=== PATIENT | male | born 1980 | race Caucasian/White ===

== ENCOUNTER 2017-03-01 15:08 | Inpatient (IN) | payer BC ==
[2017-03-01] MEDS ORDERED: MORPHINE IV PRN (21:13)
[2017-03-01] MEDS ORDERED: DULCOLAX PR PRN (21:13)
[2017-03-01] MEDS ORDERED: ZOFRAN IV PRN (21:13)
[2017-03-01] MEDS ORDERED: AMBIEN PO PRN (21:13)
[2017-03-01] MEDS ORDERED: MILK OF MAGNESIA PO PRN (21:13)
[2017-03-01] MEDS ORDERED: PERCOCET 5/325 PO PRN (21:13)
--- NOTE | 2017-03-01 21:13 | History and Physical Report ---
History of Present Illness Date of examination: 03/01/17 Date of admission: 03/01/17 16:56 Chief complaint: CC Fever 4 days History of present illness: SLEETMUTE:36 y/o male sent from Dr Hernandez's office for Fever of 4 days duration.Some body aches.No cough.No Nausea vomiting. No Dysuria.No SOB. Past History Past Medical History: No medical history Past Surgical History: Other (L knee surgery) Social history: no significant social history, lives with family Family history: no significant family history Medications and Allergies Allergies Allergy/AdvReac Type Severity Reaction Status Date / Time No Known Allergies Allergy Verified 03/01/17 16:26 Home Medications Medication Instructions Recorded Confirmed Last Taken Type No Known Home Medications [No 03/01/17 03/01/17 Unknown History Reported Home Medications] Active Meds: Active Medications Influenza Virus Vaccine Quadrival (Fluarix Quad 0590-0382(36 Mos+) 0.5 ml IM .ONCE ONE Stop: 03/02/17 12:01 Pneumococcal Polyvalent Vaccine (Pneumovax 23) 0.5 ml IM .ONCE ONE Stop: 03/02/17 12:01 Review of Systems All systems: negative Constitutional: fever, chills, anorexia, fatigue, weakness, malaise Ears, nose, mouth and throat: no dysphagia, no hoarseness, no sore throat, no swelling in mouth, no swelling in throat, no odynophagia Cardiovascular: no chest pain, no orthopnea, no palpitations, no rapid/ irregular heart beat, no edema, no syncope, no lightheadedness, no shortness of breath Respiratory: no cough, no cough with sputum, no excessive sputum, no hemoptysis , no shortness of breath, no dyspnea on exertion Gastrointestinal: no abdominal pain, no nausea, no vomiting, no diarrhea, no constipation Genitourinary Male: no dysuria, no hematuria, no flank pain, no discharge, no urinary frequency, no urinary hesitancy Musculoskeletal: no neck stiffness, no neck pain, no shooting arm pain, no arm numbness/tingling, no low back pain Integumentary: no rash, no pruritis, no redness Neurological: no head injury, no transient paralysis, no paralysis, no weakness Psychiatric: no anxiety, no memory loss, no change in sleep habits, no sleep disturbances Endocrine: no cold intolerance, no heat intolerance, no polyphagia, no excessive thirst Hematologic/Lymphatic: no easy bruising, no easy bleeding Allergic/Immunologic: no urticaria, no allergic rhinitis, no wheezing Exam - Constitutional Vitals: Temp Pulse Resp BP Pulse Ox 97.5 F L 102 H 18 120/85 97 03/01/17 20:08 03/01/17 20:08 03/01/17 20:08 03/01/17 20:08 03/01/17 20:08 General appearance: Present: no acute distress, well-nourished - EENT Eyes: Present: PERRL ENT: hearing intact, clear oral mucosa - Neck Neck: Present: supple, normal ROM - Respiratory Respiratory effort: normal Respiratory: bilateral: CTA - Cardiovascular Heart rate: 80 Rhythm: regular Heart Sounds: Present: S1 & S2. Absent: rub, click - Extremities Extremities: no ischemia, pulses intact, pulses symmetrical, No edema Peripheral Pulses: within normal limits - Abdominal General gastrointestinal: Present: soft, non-tender, non-distended, normal bowel sounds Male genitourinary: Present: normal - Rectal Rectal Exam: deferred - Integumentary Integumentary: Present: clear, warm, dry - Musculoskeletal Musculoskeletal: gait normal, strength equal bilaterally - Psychiatric Psychiatric: appropriate mood/affect, intact judgment & insight - Neurologic Neurologic: CNII-XII intact, moves all extremities - Allied Health Allied health notes reviewed: nursing, case management Results - Labs CBC & Chem 7: 03/01/17 23:15 03/01/17 21:28 - Imaging and Cardiology Chest x-ray: report reviewed Assessment and Plan Advance Directives: Yes (Full code) VTE prophylaxis?: Chemical Plan of care discussed with patient/family: Yes - Patient Problems (1) SIRS (systemic inflammatory response syndrome) Current Visit: Yes Status: Acute Plan to address problem: Fever of 101/103 in PCP's office Some Leukocytosis Bp of 97/68 in pcp's office. RR 22 Treat for Sirs.Iv levaquin IV fluids and Tamiflu.Xray and strep screen negative in PCp's office.Was given 1 liter NS in the pcp's office (2) Viral syndrome Current Visit: Yes Status: Acute Plan to address problem: In favor of influenza.Started on Tamiflu (3) Hyperglycemia Current Visit: Yes Status: Acute Plan to address problem: Patient may have T2DM Check A1c and initiate on Oral Hypoglycemics (4) Malnutrition Current Visit: Yes Status: Chronic Plan to address problem: Sec to excess calories and Morbid obesity (5) DVT prophylaxis Current Visit: Yes Status: Acute Plan to address problem: on lovenox
[2017-03-01] MEDS: PEPCID PO SCH (21:49)
[2017-03-01] MEDS: D5NS 1,000 ML IV SCH (21:49)
[2017-03-01 22:05] LABS: Anion Gap 19 mmol/L; BUN/Creatinine Ratio 15; Blood Urea Nitrogen 20 mg/dL (9-20); Calcium 8.1 mg/dL (8.4-10.2); Carbon Dioxide 23 mmol/L (22-30); Chloride 93.1 mmol/L (98-107); Glucose 183 mg/dL (75-100); Potassium 3.7 mmol/L (3.6-5.0); Sodium 131 mmol/L (137-145)
[2017-03-01 23:42] LABS: Basophils % (Auto) 0.1 % (0.0-1.8); Hematocrit 40.4 % (35.5-45.6); Hemoglobin 13.5 gm/dl (11.8-15.2); Mean Corpuscular HGB Conc 33 % (32-34); Mean Corpuscular Hemoglobin 29 pg (28-32); Mean Corpuscular Volume 87 fl (84-94); Platelet Count 150 K/mm3 (140-440); Red Blood Count 4.66 M/mm3 (3.65-5.03); Red Cell Distribution Width 14.1 % (13.2-15.2); White Blood Count 11.2 K/mm3 (4.5-11.0)
[2017-03-02] MEDS: TAMIFLU PO SCH ×3 (00:18→22:21)
[2017-03-02] MEDS: TYLENOL PO PRN ×2 (00:18→18:41)
--- NOTE | 2017-03-02 09:19 | XRay Report ---
CHEST TWO VIEWS: 03/02/17 CLINICAL: Cough and fever. COMPARISON: None FINDINGS: Normal heart and pulmonary vasculature. The lungs are normally expanded and clear.The bones and soft tissues are normal. IMPRESSION: Normal chest.
[2017-03-02] MEDS: PEPCID PO SCH ×2 (11:13→22:17)
[2017-03-02] MEDS: LEVAQUIN 750MG/150ML 750 MG/150 ML BAG IV SCH (11:14)
[2017-03-02] MEDS: D5NS 1,000 ML IV SCH (11:20)
[2017-03-02] MEDS: NOVOLOG SUB-Q SCH ×4 (11:30→22:24)
--- NOTE | 2017-03-02 11:48 | Progress Note ---
Assessment and Plan Assessment and plan: Patient is a 36-year-old man with a history of morbid obesity who was a direct admit by Dr. Franklin for fevers. -Sepsis most likely due to viral illness, poa as evident RR 22, hr 106, I re- Ordered influenza which is negative, chest x-ray read as no acute findings: continue iv abx, follow up cultures -Viral syndrome: on tamiflu -Hyperglycemia, may be new onset DM: a1c pending, start ada, ssi -Morbid Obesity, bmi 54.8: lifestyle modification discussed -DVT prophylaxis: added sq heparin -Disposition: When he is afebrile for 24 hours and cultures back for discharge History Interval history: Patient was seen and examined. Follow-up on current diagnosis/fevers. Overnight uneventful. Patient denies any chest pain, shortness breath, nausea/ vomiting or severe headaches. Imaging, nursing note, chart, labs and old chart reviewed. Discussed with patient. Hospitalist Physical - Physical exam Narrative exam: GEN: WDWN, NAD, AWAKE, ALERT, ORIENTATED 3, BMI 55 HEENT: NCAT, EOMI, PERRL, OP Clear NECK: supple, no adenopathy, no thyromegaly, no JVD CVS/HEART: RRR, NORMAL S1S2, NO JVD, pulses present bilaterally CHEST/LUNGS: CTA B, Symmetrical chest expansion, good air entry bilaterally GI/Abdomen: soft, NTND, good bowel sounds, no guarding or rebound /Bladder: no suprapubic tenderness, no CVA or paraspinal tenderness EXT/Skin: no c/c/e, acanthosis nigricans around neck MSK: FROM x 4 Neuro: CN 2-12 grossly intact, no new focal deficits Psych: calm - Constitutional Vitals: Temp Pulse Resp BP Pulse Ox 97.4 F L 117 H 24 126/72 96 03/02/17 08:30 03/02/17 08:30 03/02/17 08:30 03/02/17 08:30 03/02/17 08:30 General appearance: Present: no acute distress, well-nourished Results - Labs CBC & Chem 7: 03/01/17 23:15 03/01/17 21:28 Labs: Laboratory Last Values WBC 11.2 K/mm3 (4.5-11.0) H 03/01/17 23:15 RBC 4.66 M/mm3 (3.65-5.03) 03/01/17 23:15 Hgb 13.5 gm/dl (11.8-15.2) 03/01/17 23:15 Hct 40.4 % (35.5-45.6) 03/01/17 23:15 MCV 87 fl (84-94) 03/01/17 23:15 MCH 29 pg (28-32) 03/01/17 23:15 MCHC 33 % (32-34) 03/01/17 23:15 RDW 14.1 % (13.2-15.2) 03/01/17 23:15 Plt Count 150 K/mm3 (140-440) 03/01/17 23:15 Lymph % (Auto) 6.6 % (13.4-35.0) L 03/01/17 23:15 [place] % (Auto) 8.7 % (0.0-7.3) H 03/01/17 23:15 Eos % (Auto) 0.0 % (0.0-4.3) 03/01/17 23:15 Baso % (Auto) 0.1 % (0.0-1.8) 03/01/17 23:15 Lymph # 0.7 K/mm3 (1.2-5.4) L 03/01/17 23:15 [place] # 1.0 K/mm3 (0.0-0.8) H 03/01/17 23:15 Eos # 0.0 K/mm3 (0.0-0.4) 03/01/17 23:15 Baso # 0.0 K/mm3 (0.0-0.1) 03/01/17 23:15 Seg Neutrophils % 84.6 % (40.0-70.0) H 03/01/17 23:15 Seg Neutrophils # 9.4 K/mm3 (1.8-7.7) H 03/01/17 23:15 Sodium 131 mmol/L (137-145) L 03/01/17 21:28 Potassium 3.7 mmol/L (3.6-5.0) 03/01/17 21:28 Chloride 93.1 mmol/L (98-107) L 03/01/17 21:28 Carbon Dioxide 23 mmol/L (22-30) 03/01/17 21:28 Anion Gap 19 mmol/L 03/01/17 21:28 BUN 20 mg/dL (9-20) 03/01/17 21:28 Creatinine 1.3 mg/dL (0.8-1.5) 03/01/17 21:28 Estimated GFR > 60 ml/min 03/01/17 21:28 BUN/Creatinine Ratio 15 % 03/01/17 21:28 Glucose 183 mg/dL (75-100) H 03/01/17 21:28 Calcium 8.1 mg/dL (8.4-10.2) L 03/01/17 21:28
[2017-03-02] MEDS ORDERED: REGLAN IV PRN (11:59)
[2017-03-02] MEDS ORDERED: Fluarix Quad 2017-2018(36 MOS+ IM ONE (12:00)
[2017-03-02] MEDS ORDERED: PNEUMOVAX 23 IM ONE (12:00)
[2017-03-02] MEDS ORDERED: VANCOMYCIN PHARMACY TO DOSE IV SCH (19:00)
[2017-03-02] MEDS: VANCOMYCIN 2,000 MG in NACL 0.9% 500 ML 500 ML IV SCH (20:22)
[2017-03-02] MEDS ORDERED: TAMIFLU PO SCH (22:00)
[2017-03-03] MEDS: D5NS 1,000 ML IV SCH (04:28)
[2017-03-03 04:59] LABS: Hemoglobin 12.1 gm/dl (11.8-15.2); Mean Corpuscular HGB Conc 35 % (32-34); Mean Corpuscular Hemoglobin 30 pg (28-32); Mean Corpuscular Volume 86 fl (84-94); Red Blood Count 4.07 M/mm3 (3.65-5.03); Red Cell Distribution Width 14.2 % (13.2-15.2); White Blood Count 10.6 K/mm3 (4.5-11.0)
[2017-03-03 05:02] LABS: Platelet Count 130 K/mm3 (140-440)
[2017-03-03 05:19] LABS: Anion Gap 15 mmol/L; BUN/Creatinine Ratio 17; Blood Urea Nitrogen 15 mg/dL (9-20); Calcium 7.8 mg/dL (8.4-10.2); Carbon Dioxide 25 mmol/L (22-30); Chloride 93.7 mmol/L (98-107); Glucose 152 mg/dL (75-100); Potassium 3.7 mmol/L (3.6-5.0); Sodium 130 mmol/L (137-145)
[2017-03-03] MEDS: NOVOLOG SUB-Q SCH ×4 (08:19→22:27)
[2017-03-03] MEDS: TYLENOL PO PRN ×2 (08:50→20:49)
[2017-03-03] MEDS: VANCOMYCIN 2,000 MG in NACL 0.9% 500 ML 500 ML IV SCH ×2 (08:51→20:49)
--- NOTE | 2017-03-03 09:38 | Progress Note ---
Assessment and Plan Assessment and plan: Patient is a 36-year-old man with a history of morbid obesity who was a direct admit by Dr. Franklin for fevers. Fevers due to sepsis. Sepsis due to Beta hemolytic strep group A, present on admission. Continue levaquin and Vancomycin. Chest x-ray has no acute findings. Viral syndrome, possibly: on Tamiflu Hyperglycemia, AIc 5.9 Hyponatremia. On ivf D5NS Morbid Obesity, bmi 54.8: lifestyle modification discussed DVT prophylaxis: Heparin subcut History Interval history: Fever, Facial rash for few days Hospitalist Physical - Physical exam Narrative exam: GEN APPEARANCE : Not in acute distress, morbidly obese HEENT: erythematous rash on lips lower face, Atraumatic NECK : supple, no JVD LUNGS: Clear to auscultation gloria;aterally, no rales, no wheeze HEART: S1 and S2 regular, no murmurs, rubs or gallop, ABD: Soft, non tender, non distended, normal bowel sounds EXT: No edema, no clubbing, no cyanosis NEURO: Awake,alert, oriented x 3, no facial asymmetry,no focal signs, Psych: Normal mood - Constitutional Vitals: Temp Pulse Resp BP Pulse Ox 102.9 F H 115 H 24 108/44 91 03/03/17 07:57 03/03/17 07:57 03/03/17 07:57 03/03/17 07:57 03/03/17 07:57 Results - Labs CBC & Chem 7: 03/03/17 04:13 03/03/17 04:13 Labs: Laboratory Last Values WBC 10.6 K/mm3 (4.5-11.0) 03/03/17 04:13 RBC 4.07 M/mm3 (3.65-5.03) 03/03/17 04:13 Hgb 12.1 gm/dl (11.8-15.2) 03/03/17 04:13 Hct 35.0 % (35.5-45.6) L 03/03/17 04:13 MCV 86 fl (84-94) 03/03/17 04:13 MCH 30 pg (28-32) 03/03/17 04:13 MCHC 35 % (32-34) H 03/03/17 04:13 RDW 14.2 % (13.2-15.2) 03/03/17 04:13 Plt Count 130 K/mm3 (140-440) L 03/03/17 04:13 Lymph % (Auto) 6.6 % (13.4-35.0) L 03/01/17 23:15 [place] % (Auto) 8.7 % (0.0-7.3) H 03/01/17 23:15 Eos % (Auto) 0.0 % (0.0-4.3) 03/01/17 23:15 Baso % (Auto) 0.1 % (0.0-1.8) 03/01/17 23:15 Lymph # 0.7 K/mm3 (1.2-5.4) L 03/01/17 23:15 [place] # 1.0 K/mm3 (0.0-0.8) H 03/01/17 23:15 Eos # 0.0 K/mm3 (0.0-0.4) 03/01/17 23:15 Baso # 0.0 K/mm3 (0.0-0.1) 03/01/17 23:15 Seg Neutrophils % 84.6 % (40.0-70.0) H 03/01/17 23:15 Seg Neutrophils # 9.4 K/mm3 (1.8-7.7) H 03/01/17 23:15 Sodium 130 mmol/L (137-145) L 03/03/17 04:13 Potassium 3.7 mmol/L (3.6-5.0) 03/03/17 04:13 Chloride 93.7 mmol/L (98-107) L 03/03/17 04:13 Carbon Dioxide 25 mmol/L (22-30) 03/03/17 04:13 Anion Gap 15 mmol/L 03/03/17 04:13 BUN 15 mg/dL (9-20) 03/03/17 04:13 Creatinine 0.9 mg/dL (0.8-1.5) 03/03/17 04:13 Estimated GFR > 60 ml/min 03/03/17 04:13 BUN/Creatinine Ratio 17 % 03/03/17 04:13 Glucose 152 mg/dL (75-100) H 03/03/17 04:13 POC Glucose 129 (70-105) H 03/03/17 06:40 Hemoglobin A1c 5.9 % (4-6) 03/03/17 04:13 Calcium 7.8 mg/dL (8.4-10.2) L 03/03/17 04:13
[2017-03-03] MEDS: TAMIFLU PO SCH ×2 (10:52→22:24)
[2017-03-03] MEDS: PEPCID PO SCH ×2 (10:52→22:24)
[2017-03-03] MEDS: LEVAQUIN 750MG/150ML 750 MG/150 ML BAG IV SCH (10:53)
[2017-03-03] MEDS: HEPARIN SUB-Q SCH ×2 (13:55→22:25)
[2017-03-04 06:12] LABS: Anion Gap 13 mmol/L; BUN/Creatinine Ratio 15; Blood Urea Nitrogen 12 mg/dL (9-20); Calcium 7.9 mg/dL (8.4-10.2); Carbon Dioxide 27 mmol/L (22-30); Chloride 100.3 mmol/L (98-107); Glucose 125 mg/dL (75-100); Potassium 3.5 mmol/L (3.6-5.0); Sodium 137 mmol/L (137-145)
[2017-03-04] MEDS: D5NS 1,000 ML IV SCH ×2 (06:17→21:10)
[2017-03-04] MEDS: VANCOMYCIN 2,000 MG in NACL 0.9% 500 ML 500 ML IV SCH (07:43)
[2017-03-04] MEDS: NOVOLOG SUB-Q SCH ×4 (07:46→22:48)
--- NOTE | 2017-03-04 09:00 | Progress Note ---
Assessment and Plan Assessment and plan: Patient is a 36-year-old man with a history of morbid obesity who was a direct admit by Dr. Franklin for fevers. Fevers due to sepsis. Still having fevers. temp 100.5 yesterday. Sepsis due to Beta hemolytic strep group A, present on admission. Continue levaquin and Vancomycin. ID Physician consultedChest x-ray has no acute findings. Viral syndrome, possibly: on Tamiflu Prediabetes., AIc 5.9. I discussed with patient. Hyponatremia. Now resolvedOn ivf D5NS Morbid Obesity, BMI 55.8: Lifestyle modification discussed DVT prophylaxis: Heparin subcut History Interval history: Fever yesterday Facial rash for few days Hospitalist Physical - Physical exam Narrative exam: GEN APPEARANCE : Not in acute distress, morbidly obese HEENT: erythematous rash on lips lower face, Atraumatic NECK : supple, no JVD LUNGS: Clear to auscultation gloria;aterally, no rales, no wheeze HEART: S1 and S2 regular, no murmurs, rubs or gallop, ABD: Soft, non tender, non distended, normal bowel sounds EXT: No edema, no clubbing, no cyanosis NEURO: Awake,alert, oriented x 3, no facial asymmetry,no focal signs Psych: Normal mood - Constitutional Vitals: Temp Pulse Resp BP Pulse Ox 99.3 F 105 H 24 104/61 95 03/04/17 05:07 03/04/17 05:07 03/04/17 05:07 03/04/17 05:07 03/04/17 05:07 General appearance: Present: no acute distress, well-nourished Results - Labs CBC & Chem 7: 03/03/17 04:13 03/04/17 05:05 Labs: Laboratory Last Values WBC 10.6 K/mm3 (4.5-11.0) 03/03/17 04:13 RBC 4.07 M/mm3 (3.65-5.03) 03/03/17 04:13 Hgb 12.1 gm/dl (11.8-15.2) 03/03/17 04:13 Hct 35.0 % (35.5-45.6) L 03/03/17 04:13 MCV 86 fl (84-94) 03/03/17 04:13 MCH 30 pg (28-32) 03/03/17 04:13 MCHC 35 % (32-34) H 03/03/17 04:13 RDW 14.2 % (13.2-15.2) 03/03/17 04:13 Plt Count 130 K/mm3 (140-440) L 03/03/17 04:13 Lymph % (Auto) 6.6 % (13.4-35.0) L 03/01/17 23:15 [place] % (Auto) 8.7 % (0.0-7.3) H 03/01/17 23:15 Eos % (Auto) 0.0 % (0.0-4.3) 03/01/17 23:15 Baso % (Auto) 0.1 % (0.0-1.8) 03/01/17 23:15 Lymph # 0.7 K/mm3 (1.2-5.4) L 03/01/17 23:15 [place] # 1.0 K/mm3 (0.0-0.8) H 03/01/17 23:15 Eos # 0.0 K/mm3 (0.0-0.4) 03/01/17 23:15 Baso # 0.0 K/mm3 (0.0-0.1) 03/01/17 23:15 Seg Neutrophils % 84.6 % (40.0-70.0) H 03/01/17 23:15 Seg Neutrophils # 9.4 K/mm3 (1.8-7.7) H 03/01/17 23:15 Sodium 137 mmol/L (137-145) D 03/04/17 05:05 Potassium 3.5 mmol/L (3.6-5.0) L 03/04/17 05:05 Chloride 100.3 mmol/L (98-107) 03/04/17 05:05 Carbon Dioxide 27 mmol/L (22-30) 03/04/17 05:05 Anion Gap 13 mmol/L 03/04/17 05:05 BUN 12 mg/dL (9-20) 03/04/17 05:05 Creatinine 0.8 mg/dL (0.8-1.5) 03/04/17 05:05 Estimated GFR > 60 ml/min 03/04/17 05:05 BUN/Creatinine Ratio 15 % 03/04/17 05:05 Glucose 125 mg/dL (75-100) H 03/04/17 05:05 POC Glucose 133 (70-105) H 03/04/17 06:42 Hemoglobin A1c 5.9 % (4-6) 03/03/17 04:13 Calcium 7.9 mg/dL (8.4-10.2) L 03/04/17 05:05
[2017-03-04] MEDS: HEPARIN SUB-Q SCH ×2 (09:28→21:01)
[2017-03-04] MEDS: K-DUR PO SCH ×2 (09:29→13:30)
[2017-03-04] MEDS: PEPCID PO SCH ×2 (09:30→21:10)
[2017-03-04] MEDS ORDERED: PFIZERPEN IV SCH (10:00)
--- NOTE | 2017-03-04 11:52 | Consultation ---
History of Present Illness - Reason for Consult Consult date: 03/04/17 bacteremia Requesting physician: MARY KAY CAMILO - History of Present Illness 36 years old male, morbidly obese, admitted on 03/01/2017 due to 6 day history of severe malaise, subjective fever and mild sore throat. Patient reports chills, rigors and malaise but cannot explain where was coming from. He has been exposed to several coworkers who were having "flu like symptoms" the previous week. Patient denies diabetes, denies any limb edema/erythema. In the emergency room, initial temperature was 98.5 however temperature went up to 101.6. Heart rate 106. Blood pressure 108/77. Initial white count 11.2. Creatinine 1.3. CRP=22. A1C=5.9. Microbiology: Blood cultures: 03/01 GAS Urine cultures: 03/01 10-100K Other: Current Antimicrobials: Vanco Levaquin Previous Antimicrobials: Past History Past Medical History: No medical history, other (morbidly obese) Past Surgical History: Other (L knee surgery) Social history: no significant social history, lives with family Family history: no significant family history Medications and Allergies Allergies Allergy/AdvReac Type Severity Reaction Status Date / Time No Known Allergies Allergy Verified 03/01/17 16:26 Home Medications Medication Instructions Recorded Confirmed Last Taken Type No Known Home Medications [No 03/01/17 03/01/17 Unknown History Reported Home Medications] Active Meds: Active Medications Acetaminophen (Tylenol) 650 mg PO Q4H PRN PRN Reason: Pain MILD(1-3)/Fever >100.5/RIZVI Last Admin: 03/03/17 20:49 Dose: 650 mg Bisacodyl (Dulcolax) 10 mg MS QDAY PRN PRN Reason: Constipation unrelieved by MOM Famotidine (Pepcid) 20 mg PO BID [facility] Last Admin: 03/04/17 09:30 Dose: 20 mg Heparin Sodium (Porcine) (Heparin) 5,000 unit SUB-Q Q12HR [facility] Last Admin: 03/04/17 09:28 Dose: 5,000 unit Dextrose/Sodium Chloride (D5ns) 1,000 mls @ 100 mls/hr IV DIRECT [facility] Last Admin: 03/04/17 06:17 Dose: 100 mls/hr Vancomycin HCl 2,000 mg/ (Sodium Chloride) 520 mls @ 250 mls/hr IV Q12H [facility] Last Admin: 03/04/17 07:43 Dose: 250 mls/hr Clindamycin HCl (Cleocin 900 Mg/50 Ml) 900 mg in 50 mls @ 100 mls/hr IV Q8HR [facility] PRN Reason: Protocol Insulin Aspart (Novolog) 0 units SUB-Q ACHS [facility] PRN Reason: Protocol Last Admin: 03/04/17 07:46 Dose: Not Given Magnesium Hydroxide (Milk Of Magnesia) 30 ml PO Q4H PRN PRN Reason: Constipation Metoclopramide HCl (Reglan) 10 mg IV Q8H PRN PRN Reason: Nausea And Vomiting Ondansetron HCl (Zofran) 4 mg IV Q8H PRN PRN Reason: N/V unrelieved by Reglan Oxycodone/Acetaminophen (Percocet 5/325) 1 tab PO Q6H PRN PRN Reason: Pain, Moderate (4-6) Penicillin G Potassium (Pfizerpen) 4 mil.units IV Q4HR [facility] PRN Reason: Protocol Potassium Chloride (K-Dur) 40 meq PO Q6H [facility] Stop: 03/04/17 14:01 Last Admin: 03/04/17 09:29 Dose: 40 meq Vancomycin HCl (Vancomycin Pharmacy To Dose) 1 each IV PKCONSULT [facility] PRN Reason: Protocol Zolpidem Tartrate (Ambien) 5 mg PO QHS PRN PRN Reason: Insomnia Review of Systems All systems: negative (as per HPI rest neg) Physical Examination - Physical Exam Narrative exam: General appearance: Alert in NAD, morbidly obese Eyes: anicteric sclerae, moist conjunctivae; no lid-lag; PERRLA HENT: Atraumatic; oropharynx clear Neck: Trachea midline; supple, no thyromegaly or lymphadenopathy Lungs: CTA CV: tachycardia Abdomen: Soft, non-tender, large pannus Extremities: No peripheral edema or extremity lymphadenopathy Skin: diffuse nodular rash (chronic) under abdominal pannus and gluteal area Psych: Appropriate affect, alert and oriented to person, place and time. Neuro: alert and oriented x 3. Moving all extermities Lines: No CVL / PICC - Constitutional Vitals: Vital Signs Temp Pulse Resp BP Pulse Ox 99.3 F 105 H 24 104/61 95 03/04/17 05:07 03/04/17 05:07 03/04/17 05:07 03/04/17 05:07 03/04/17 05:07 Temperature -Last 24 Hours Temperature 99.3 F Temperature 98.9 F Temperature 100.5 F Temperature 99.0 F Temperature 98.2 F Results - Labs CBC & Chem 7: 03/03/17 04:13 03/04/17 05:05 Labs: Abnormal lab results 03/03/17 03/03/17 03/03/17 Range/Units 12: 16:25 21:34 Potassium (3.6-5.0) mmol/L Glucose (75-100) mg/dL POC Glucose 114 H 130 H 132 H (70-105) Calcium (8.4-10.2) mg/dL C-Reactive Protein (0.00-1.30) mg/dL 03/04/17 03/04/17 03/04/17 Range/Units 05:05 06:42 08:57 Potassium 3.5 L (3.6-5.0) mmol/L Glucose 125 H (75-100) mg/dL POC Glucose 133 H (70-105) Calcium 7.9 L (8.4-10.2) mg/dL C-Reactive Protein 22.10 H (0.00-1.30) mg/dL 03/04/17 Range/Units 10:59 Potassium (3.6-5.0) mmol/L Glucose (75-100) mg/dL POC Glucose 125 H (70-105) Calcium (8.4-10.2) mg/dL C-Reactive Protein (0.00-1.30) mg/dL Assessment and Plan Assessment: 1) Sepsis: Present on admission, manifested by fever, tachycardia, hypotension, leukocytosis. Etiology most likely GAS sepsticemia. 2) GAS septicemia: unclear source ? Strep throat, no evidence of skin/soft tissue infection. CRP=22. 3) Morbid obesity. A1C=5.9. Plan: -follow-up blood cultures, urine culture -obtain throat culture/swab -stop levaquin/vancomycin -start penicillin IV and Clindamycin IV -monitor for hypotension -repeat blood cx -TTE Thank you Dr Camilo for your consultation, will follow up with you. Yara Qureshi MD Infectious Diseases Specialist [facility] ([facility] M [phone] O [phone]
[2017-03-04] MEDS: CLEOCIN 900 MG/50 mL 900 MG/50 ML BAG IV SCH ×2 (13:31→21:00)
[2017-03-04] MEDS: PFIZERPEN 4 MIL.UNITS in NACL 0.9% 50 ML IV SCH ×3 (16:05→21:13)
[2017-03-04] MEDS: VALTREX PO SCH (21:00)
[2017-03-05] MEDS: PFIZERPEN 4 MIL.UNITS in NACL 0.9% 50 ML IV SCH ×6 (01:03→22:33)
[2017-03-05 01:40] LABS: Bacteria,Urine 1+ /HPF (Negative); Bilirubin,Urine NEG (Negative); Blood,Urine NEG (Negative); Ketones,Urine NEG (Negative); Leukocyte Esterase,Urine NEG (Negative); Mucus,Urine FEW /HPF; Nitrite,Urine NEG (Negative); Protein,Urine <15 mg/dL mg/dL (Negative); RBC,Urine < 1.0 /HPF (0.0-6.0); Urobilinogen,Urine < 2.0 mg/dL (<2.0)
[2017-03-05] MEDS: CLEOCIN 900 MG/50 mL 900 MG/50 ML BAG IV SCH ×3 (05:13→21:08)
[2017-03-05 05:40] LABS: Hematocrit 33.4 % (35.5-45.6); Hemoglobin 11.3 gm/dl (11.8-15.2); Mean Corpuscular HGB Conc 34 % (32-34); Mean Corpuscular Hemoglobin 29 pg (28-32); Mean Corpuscular Volume 86 fl (84-94); Platelet Count 116 K/mm3 (140-440); Red Cell Distribution Width 13.9 % (13.2-15.2); White Blood Count 6.4 K/mm3 (4.5-11.0)
[2017-03-05 06:03] LABS: Chloride 102.7 mmol/L (98-107); Sodium 138 mmol/L (137-145)
[2017-03-05 06:04] LABS: Anion Gap 15 mmol/L; BUN/Creatinine Ratio 15; Blood Urea Nitrogen 9 mg/dL (9-20); Calcium 8.1 mg/dL (8.4-10.2); Carbon Dioxide 24 mmol/L (22-30); Glucose 109 mg/dL (75-100)
[2017-03-05] MEDS: NOVOLOG SUB-Q SCH ×4 (07:43→22:49)
[2017-03-05] MEDS: PEPCID PO SCH ×2 (09:10→21:11)
[2017-03-05] MEDS: HEPARIN SUB-Q SCH ×2 (09:10→21:12)
[2017-03-05] MEDS: VALTREX PO SCH ×2 (09:10→21:11)
--- NOTE | 2017-03-05 09:48 | Progress Note ---
Assessment and Plan Assessment and plan: Patient is a 36-year-old man with a history of morbid obesity who was a direct admit by Dr. Franklin for fevers. Fevers due to sepsis. Fever subsiding, no fever for >36 hrs. Sepsis due to Beta hemolytic strep group A, present on admission. Started on Pen G, Clindamycin and Valtrex. ID Physician following. I discussed with Dr. Ryan. Prediabetes., AIc 5.9. I discussed with patient. Hyponatremia. Now resolved. On ivf D5NS Morbid Obesity, BMI > 50: Lifestyle modification discussed DVT prophylaxis: Heparin subcut Patient will need PICC line placement and outpatient iv Antibiotics. History Interval history: Fever subsiding, last fever 2 days ago Facial rash for few days Hospitalist Physical - Physical exam Narrative exam: GEN APPEARANCE : Not in acute distress, morbidly obese HEENT: erythematous rash on lips lower face, Atraumatic NECK : supple, no JVD LUNGS: Clear to auscultation bilaterally, no rales, no wheeze HEART: S1 and S2 regular, no murmurs, rubs or gallop, ABD: Soft, non tender, non distended, normal bowel sounds EXT: No edema, no clubbing, no cyanosis NEURO: Awake,alert, oriented x 3, no facial asymmetry,no focal signs Psych: Normal mood - Constitutional Vitals: Temp Pulse Resp BP Pulse Ox 98.5 F 90 18 126/86 97 03/05/17 07:09 03/05/17 07:09 03/05/17 07:09 03/05/17 07:09 03/05/17 07:09 Results - Labs CBC & Chem 7: 03/05/17 05:19 03/05/17 05:19 Labs: Laboratory Last Values WBC 6.4 K/mm3 (4.5-11.0) 03/05/17 05:19 RBC 3.90 M/mm3 (3.65-5.03) 03/05/17 05:19 Hgb 11.3 gm/dl (11.8-15.2) L 03/05/17 05:19 Hct 33.4 % (35.5-45.6) L 03/05/17 05:19 MCV 86 fl (84-94) 03/05/17 05:19 MCH 29 pg (28-32) 03/05/17 05:19 MCHC 34 % (32-34) 03/05/17 05:19 RDW 13.9 % (13.2-15.2) 03/05/17 05:19 Plt Count 116 K/mm3 (140-440) L 03/05/17 05:19 Lymph % (Auto) 6.6 % (13.4-35.0) L 03/01/17 23:15 [place] % (Auto) 8.7 % (0.0-7.3) H 03/01/17 23:15 Eos % (Auto) 0.0 % (0.0-4.3) 03/01/17 23:15 Baso % (Auto) 0.1 % (0.0-1.8) 03/01/17 23:15 Lymph # 0.7 K/mm3 (1.2-5.4) L 03/01/17 23:15 [place] # 1.0 K/mm3 (0.0-0.8) H 03/01/17 23:15 Eos # 0.0 K/mm3 (0.0-0.4) 03/01/17 23:15 Baso # 0.0 K/mm3 (0.0-0.1) 03/01/17 23:15 Seg Neutrophils % 84.6 % (40.0-70.0) H 03/01/17 23:15 Seg Neutrophils # 9.4 K/mm3 (1.8-7.7) H 03/01/17 23:15 Sodium 138 mmol/L (137-145) 03/05/17 05:19 Potassium 4.0 mmol/L (3.6-5.0) 03/05/17 05:19 Chloride 102.7 mmol/L (98-107) 03/05/17 05:19 Carbon Dioxide 24 mmol/L (22-30) 03/05/17 05:19 Anion Gap 15 mmol/L 03/05/17 05:19 BUN 9 mg/dL (9-20) 03/05/17 05:19 Creatinine 0.6 mg/dL (0.8-1.5) L 03/05/17 05:19 Estimated GFR > 60 ml/min 03/05/17 05:19 BUN/Creatinine Ratio 15 % 03/05/17 05:19 Glucose 109 mg/dL (75-100) H 03/05/17 05:19 POC Glucose 93 (70-105) 03/05/17 05:40 Hemoglobin A1c 5.9 % (4-6) 03/03/17 04:13 Calcium 8.1 mg/dL (8.4-10.2) L 03/05/17 05:19 C-Reactive Protein 22.10 mg/dL (0.00-1.30) H 03/04/17 08:57 Urine Color Yellow (Yellow) 03/05/17 01:12 Urine Turbidity Clear (Clear) 03/05/17 01:12 Urine pH 5.0 (5.0-7.0) 03/05/17 01:12 Ur Specific [place] 1.015 (1.003-1.030) 03/05/17 01:12 Urine Protein <15 mg/dl mg/dL (Negative) 03/05/17 01:12 Urine Glucose (UA) Neg mg/dL (Negative) 03/05/17 01:12 Urine Ketones Neg mg/dL (Negative) 03/05/17 01:12 Urine Blood Neg (Negative) 03/05/17 01:12 Urine Nitrite Neg (Negative) 03/05/17 01:12 Urine Bilirubin Neg (Negative) 03/05/17 01:12 Urine Urobilinogen < 2.0 mg/dL (<2.0) 03/05/17 01:12 Ur Leukocyte Esterase Neg (Negative) 03/05/17 01:12 Urine WBC (Auto) 1.0 /HPF (0.0-6.0) 03/05/17 01:12 Urine RBC (Auto) < 1.0 /HPF (0.0-6.0) 03/05/17 01:12 Urine Bacteria (Auto) 1+ /HPF (Negative) 03/05/17 01:12 Urine Mucus Few /HPF 03/05/17 01:12
[2017-03-05] MEDS: D5NS 1,000 ML IV SCH (10:53)
--- NOTE | 2017-03-05 11:07 | Progress Note ---
Assessment and Plan Assessment: 1) Sepsis: Present on admission, manifested by fever, tachycardia, hypotension, leukocytosis. Etiology most likely GAS sepsticemia. 2) GAS septicemia: unclear source ? Strep throat, no evidence of skin/soft tissue infection. CRP=22. 3) Morbid obesity. A1C=5.9. Plan: -continue penicillin IV and Clindamycin IV -f/u repeat blood cx -TTE pending -upon discharge will do ceftriaxone 2 g IV qday total 14 days from 03/04 until 03/17 -PICC line Thank you Dr Esparza for your consultation, will follow up with you. Yara Qureshi MD Infectious Diseases Specialist [facility] ([facility]) M [phone] O [phone] Subjective Date of service: 03/05/17 Principal diagnosis: bacteremia Interval history: Feels much better, more energy, no fever/chills. Microbiology: Blood cultures: 03/01 GAS 03/04 ngtd Urine cultures: 03/01 10-100K Strep throat rapid: neg Current Antimicrobials: Penicillin 03/04 Clindamycin 03/04 Previous Antimicrobials: Vanco Levaquin Objective - Exam Narrative Exam: General appearance: Alert in NAD, morbidly obese Eyes: anicteric sclerae, moist conjunctivae; no lid-lag; PERRLA HENT: Atraumatic; oropharynx clear Neck: Trachea midline; supple, no thyromegaly or lymphadenopathy Lungs: CTA CV: tachycardia Abdomen: Soft, non-tender, large pannus Extremities: No peripheral edema or extremity lymphadenopathy Skin: diffuse nodular rash (chronic) under abdominal pannus and gluteal area Psych: Appropriate affect, alert and oriented to person, place and time. Neuro: alert and oriented x 3. Moving all extermities Lines: No CVL / PICC - Constitutional Vitals: Vital Signs Temp Pulse Resp BP Pulse Ox 98.5 F 90 18 126/86 97 03/05/17 07:09 03/05/17 07:09 03/05/17 07:09 03/05/17 07:09 03/05/17 07:09 Temperature -Last 24 Hours Temperature 98.5 F Temperature 99.4 F Temperature 97.7 F Temperature 98.4 F - Labs CBC & Chem 7: 03/05/17 05:19 12/19/17 05:19 Labs: Abnormal lab results 03/04/17 03/05/17 03/05/17 Range/Units 10:59 05:19 05:19 Hgb 11.3 L (11.8-15.2) gm/dl Hct 33.4 L (35.5-45.6) % Plt Count 116 L (140-440) K/mm3 Creatinine 0.6 L (0.8-1.5) mg/dL Glucose 109 H (75-100) mg/dL POC Glucose 125 H (70-105) Calcium 8.1 L (8.4-10.2) mg/dL
[2017-03-06] MEDS: D5NS 1,000 ML IV SCH (02:12)
[2017-03-06] MEDS: PFIZERPEN 4 MIL.UNITS in NACL 0.9% 50 ML IV SCH ×3 (03:01→11:00)
[2017-03-06] MEDS: CLEOCIN 900 MG/50 mL 900 MG/50 ML BAG IV SCH ×2 (06:31→13:20)
[2017-03-06] MEDS: NOVOLOG SUB-Q SCH ×2 (08:38→12:27)
[2017-03-06] MEDS: VALTREX PO SCH (10:45)
[2017-03-06] MEDS: PEPCID PO SCH (10:45)
[2017-03-06] MEDS: HEPARIN SUB-Q SCH (10:46)
--- NOTE | 2017-03-06 11:15 | XRay Report ---
AP CHEST: HISTORY: PICC placement A right arm PICC has been inserted which terminates near the cavoatrial junction. Heart and mediastinal structures are unremarkable. The lungs are clear. No significant change since the exam 4 days ago. IMPRESSION: Adequate placement of a right arm PICC. No acute process in the chest.
--- NOTE | 2017-03-06 11:34 | Discharge Summary ---
Providers - Providers Date of Admission: 03/01/17 16:56 Date of discharge: 03/06/17 Attending physician: MARY KAY CAMILO 03/03/17 08:16 Consult to Physician [CONS] Routine Consulting Provider: YARA GALINDO Reason For Exam: Fever Place consult to:: dr. arteaga Notified:: Phone number called:: [phone] Was contact made?: Yes If yes, spoke with:: dr. arteaga Time called:: 11:34 03/05/17 11:11 Consult to PICC Line RN [CONS] Urgent Reason For Exam: iv ceftriaxone x 2 weeks Type Line:: PICC 03/05/17 11:12 Consult to Case Management [CONS] Stat Services Needed at Discharge: Other Notified:: reproduction specialist Additional Physician Instructions: [facility] ([facility]) Yara Arteaga MD [phone] O [phone] OUTPATIENT PARENTERAL ANTIBIOTIC THERAPY ORDERS Diagnoses: Group A Strep septicemia Antimicrobial administration: ceftriaxone 2 g IV qday total 14 days from 03/04 until 03/17/17 Lines: PICC Lab monitoring: CBC, CMP, CRP once a week preferly on Saturday morning. Please fax results to [phone] and call [phone] for critical lab results. Yara Arteaga Date: 03/05/17 Primary care physician: MARY KAY MICHAEL Hospitalization Condition: Fair Disposition: DC/TX-06 HOME UNDER HOME [facility] Core Measure Documentation - Palliative Care Palliative Care/ Comfort Measures: Not Applicable Exam - Constitutional Vitals: Temp Pulse Resp BP Pulse Ox 97.8 F 87 22 127/83 96 03/06/17 07:26 03/06/17 07:26 03/06/17 07:26 03/06/17 07:26 03/06/17 07:26 Plan Activity: advance as tolerated Diet: low fat, low cholesterol, low salt, diabetic Additional Instructions: 1.Follow up with PCP in 1 week. 2.Home health Nurse. 3.Ceftriaxone iv daily x 12 days more Follow up with: MARY KAY MICHAEL MD [Primary Care Provider] - 7 Days Prescriptions: cefTRIAXone/NS 2 GM/100 ML [Rocephin/Ns 2 gm/100 ml] 2 gm IV Q24HR 11 Days piggyback
[2017-03-06 11:46] VITALS: BP 118/89
--- NOTE | 2017-03-06 13:04 | Progress Note ---
Assessment and Plan Assessment: 1) Sepsis: resolved. Etiology most likely GAS septicemia. 2) GAS septicemia: unclear source ? Strep throat, no evidence of skin/soft tissue infection. CRP=22. 3) Morbid obesity. A1C=5.9. Plan: -continue penicillin IV and Clindamycin IV -TTE pending -upon discharge will do ceftriaxone 2 g IV qday total 14 days from 03/04 until 03/[address] Esparza for your consultation, will follow up with you. Yara Qureshi MD Infectious Diseases Specialist [facility] ([facility] M [phone] O [phone] Subjective Date of service: 03/06/17 Principal diagnosis: bacteremia Interval history: Feels much better, no fever, wants to go home. Microbiology: Blood cultures: 03/01 GAS 03/04 ngtd Urine cultures: 03/01 10-100K Strep throat rapid: neg Current Antimicrobials: Penicillin 03/04 Clindamycin 03/04 Previous Antimicrobials: Vanco Levaquin Objective - Exam Narrative Exam: General appearance: Alert in NAD, morbidly obese Eyes: anicteric sclerae, moist conjunctivae; no lid-lag; PERRLA HENT: Atraumatic; oropharynx clear Neck: Trachea midline; supple, no thyromegaly or lymphadenopathy Lungs: CTA CV: rrr Abdomen: Soft, non-tender, large pannus Extremities: No peripheral edema or extremity lymphadenopathy Skin: diffuse nodular rash (chronic) under abdominal pannus and gluteal area Psych: Appropriate affect, alert and oriented to person, place and time. Neuro: alert and oriented x 3. Moving all extermities Lines: No CVL / PICC - Constitutional Vitals: Vital Signs Temp Pulse Resp BP Pulse Ox 98.2 F 76 22 118/89 97 03/06/17 11:07 03/06/17 11:07 03/06/17 11:07 03/06/17 11:07 03/06/17 11:07 Temperature -Last 24 Hours Temperature 98.2 F Temperature 97.8 F Temperature 98.1 F Temperature 98.4 F Temperature 98.6 F Temperature 98.2 F - Labs CBC & Chem 7: 03/05/17 05:19 03/05/17 05:19
== END 2017-03-06 18:00 | disposition home health service (06) | DRG 872 ==
LOC: 3A 15:08 → UNDOADMIN 15:08 → 3A 16:56
PROVIDERS: ADMIT Internal Medicine; ATTEND Internal Medicine
PROC: 3E0234Z Introduction of Serum, Toxoid and Vaccine into Muscle, Percutaneous Approach (ICD-10-PCS; principal; 2017-03-02)
PROC: 02HV33Z Insertion of Infusion Device into Superior Vena Cava, Percutaneous Approach (ICD-10-PCS; 2017-03-05)
PROC: B5181ZA Fluoroscopy of Superior Vena Cava using Low Osmolar Contrast, Guidance (ICD-10-PCS; 2017-03-05)
DX: A40.0 Sepsis due to streptococcus, group A (principal); Z68.43 Body mass index [BMI] 50.0-59.9, adult; E87.1 Hypo-osmolality and hyponatremia; E46 Unspecified protein-calorie malnutrition; R73.9 Hyperglycemia, unspecified; B34.9 Viral infection, unspecified; E66.01 Morbid (severe) obesity due to excess calories; Z71.3 Dietary counseling and surveillance; Z23 Encounter for immunization; R73.03 Prediabetes
CPT/HCPCS: 36415; 71010; 71020; 80048; 81001; 82962; 83036; 85025; 85027; 86140; 87040; 87086; 87116; 87400; 87430; 90686; 90732; 93306; J1644; J1956; J2540; J3370; J7040; J7042

== ENCOUNTER 2018-04-23 21:09 | Emergency (ER) | payer BC ==
--- NOTE | 2018-04-23 21:53 | Emergency Department Report ---
Blank Doc - Documentation Documentation: 37 y.o. male presents with fever and cough. Reports congestion and cough star sulma last week and fever today. He called tele doctor last and told to get OTC meds with no improvement of symptoms. Fast Track for evaluation
[2018-04-24] MEDS ORDERED: IBUPROFEN PO ONE (01:35)
--- NOTE | 2018-04-24 01:54 | Emergency Department Report ---
ED Fever HPI - General Chief Complaint: Fever Stated Complaint: FEVER/CHILLS Time Seen by Provider: 04/23/18 21:51 Source: patient, RN notes reviewed Exam Limitations: no limitations - History of Present Illness Initial Comments: Patient is a 37-year-old male who presents with fevers chills 1 day MAXIMUM TEMPERATURE is 100 patient states cough productive green right ear pain and head congestion there is no nausea vomiting no chest pain no dizziness no diaphoresis no back pain symptoms are exacerbated by activity symptoms are relieved by rest Timing/Duration: this morning Fever Severity/Quality: no fever, low grade Associated Symptoms: cough (productive green, ear pain ) ED Review of Systems ROS: Stated complaint: FEVER/CHILLS Other details as noted in HPI Constitutional: denies: chills, fever Eyes: denies: eye pain, eye discharge, vision change ENT: ear pain, congestion. denies: throat pain, hearing loss, epistaxis Respiratory: cough. denies: shortness of breath, wheezing Cardiovascular: denies: chest pain, palpitations Endocrine: no symptoms reported Gastrointestinal: denies: abdominal pain, nausea, diarrhea Genitourinary: denies: urgency, dysuria Musculoskeletal: denies: back pain, joint swelling, arthralgia Skin: denies: rash, lesions Neurological: denies: headache, weakness, paresthesias Psychiatric: denies: anxiety, depression Hematological/Lymphatic: denies: easy bleeding, easy bruising ED Past Medical Hx - Past Medical History Hx Hypertension: Yes Hx Deep Vein Thrombosis: No Additional medical history: hypothyroidism - Surgical History Hx Pacemaker: No Hx Internal Defibrillator: No Additional Surgical History: left knee - Social History Smoking Status: Never Smoker Substance Use Type: None - Medications Home Medications: Home Medications Medication Instructions Recorded Confirmed Last Taken Type HYDROcodone/ACETAMINOPHEN [Mccrory 1 each PO Q6H #12 tablet 03/06/17 Unknown Rx 5-325 Tablet] Valacyclovir HCl [Valtrex] 2,000 mg PO BID #4 tab 03/06/17 Unknown Rx cefTRIAXone/NS 2 GM/100 ML 2 gm IV Q24HR 11 Days piggyback 03/06/17 Unknown Rx [Rocephin/Ns 2 gm/100 ml] Amoxicillin/Potassium Clav 1 each PO BID 10 Days #20 tablet 04/24/18 Unknown Rx [Augmentin 875-125 Tablet] Cetirizine HCl [ZyrTEC] 10 mg PO DAILY #30 capsule 04/24/18 Unknown Rx Fluticasone [Flonase] 1 spray NS QDAY #1 bottle 04/24/18 Unknown Rx Ibuprofen 800 mg PO TID PRN #30 tablet 04/24/18 Unknown Rx ED Physical Exam - General Limitations: No Limitations General appearance: alert, in no apparent distress - Head Head exam: Present: atraumatic, normocephalic - Eye Eye exam: Present: normal appearance, PERRL, EOMI Pupils: Present: normal accommodation - ENT ENT exam: Present: normal orophraynx, mucous membranes moist, normal external ear exam - Expanded ENT Exam Expanded TM/Canal exam: Erythema: Right TM, Canal Tenderness: Right TM (L) Mouth exam: Absent: trismus Throat exam: Positive: normal inspection, tonsillar erythema, tonsillomegaly, other (uvula midline no stridor no exudate no lesions no ). Negative: tonsillar exudate, R peritonsillar mass, L peritonsillar mass - Neck Neck exam: Present: normal inspection, full ROM. Absent: tenderness, meningismus, lymphadenopathy, thyromegaly - Respiratory Respiratory exam: Present: normal lung sounds bilaterally. Absent: respiratory distress, wheezes, rales, rhonchi, stridor, chest wall tenderness - Cardiovascular Cardiovascular Exam: Present: regular rate, normal rhythm, normal heart sounds. Absent: systolic murmur, diastolic murmur, rubs, gallop - GI/Abdominal GI/Abdominal exam: Present: soft, normal bowel sounds. Absent: distended, tenderness, rigid, bruit (patient), hernia - Rectal Rectal exam: Present: deferred - Extremities Exam Extremities exam: Present: normal inspection, full ROM, normal capillary refill - Back Exam Back exam: Present: normal inspection, full ROM. Absent: tenderness, CVA tenderness (R), CVA tenderness (L) - Neurological Exam Neurological exam: Present: alert, oriented X3, CN II-XII intact, normal gait, reflexes normal - Psychiatric Psychiatric exam: Present: normal affect, normal mood - Skin Skin exam: Present: warm, dry, intact, normal color. Absent: rash ED Course Vital Signs 04/23/18 04/24/18 21:27 02:00 Temperature 99.8 F H Pulse Rate 122 H Respiratory 20 18 Rate Blood Pressure 120/77 O2 Sat by Pulse 96 Oximetry ED Medical Decision Making - Radiology Data Radiology results: report reviewed, image reviewed FINAL REPORT PROCEDURE: XR CHEST ROUTINE 2V TECHNIQUE: PA and lateral chest radiographs were obtained. CPT 29364 HISTORY: cough fever COMPARISON: No prior studies are available for comparison. FINDINGS: Heart: Normal. Mediastinum/Vessels: Normal. Lungs/Pleural space: Normal. Bony thorax: No acute osseous abnormality. Other: IMPRESSION: Normal examination. Transcribed By: CO Dictated By: ANGELICA BHANDARI MD Electronically Authenticated By: ANGELICA BHANDARI MD Signed Date/Time: 04/24/18302 DD/ 1 TD/TT: 04/24/18301 - Medical Decision Making cxr is normal no infiltrates no opacities this is sinusitis plan: augmentin , ibuprofen , flonase, pt will follow up with pcp in 2-3 days pt verbailzed agreement and understanding of same. pt is currently a/o x 3 ambulatory with steady gait nad hr is improved with ibuprofen given in ed tonight. Critical care attestation.: If time is entered above; I have spent that time in minutes in the direct care of this critically ill patient, excluding procedure time. ED Disposition Clinical Impression: Sinusitis Qualifiers: Sinusitis location: maxillary Chronicity: acute Recurrence: non-recurrent Qualified Code(s): J01.00 - Acute maxillary sinusitis, unspecified URI (upper respiratory infection) Qualifiers: URI type: unspecified viral URI Qualified Code(s): J06.9 - Acute upper respiratory infection, unspecified Disposition: - TO HOME OR SELFCARE Is pt being admited?: No Does the pt Need Aspirin: No Condition: Stable Instructions: Sinusitis (ED), Upper Respiratory Infection (ED) Prescriptions: Amoxicillin/Potassium Clav [Augmentin 875-125 Tablet] 1 each PO BID 10 Days #20 tablet Cetirizine HCl [ZyrTEC] 10 mg PO DAILY #30 capsule Fluticasone [Flonase] 1 spray NS QDAY #1 bottle Ibuprofen 800 mg PO TID PRN #30 tablet PRN Reason: pain fever Referrals: NANDINI MAYS [Primary Care Provider] - 3-5 Days Forms: Work/School Release Form(ED) Time of Disposition: 04:16
--- NOTE | 2018-04-24 03:03 | XRay Report ---
FINAL REPORT PROCEDURE: XR CHEST ROUTINE 2V TECHNIQUE: PA and lateral chest radiographs were obtained. CPT 27693 HISTORY: cough fever COMPARISON: No prior studies are available for comparison. FINDINGS: Heart: Normal. Mediastinum/Vessels: Normal. Lungs/Pleural space: Normal. Bony thorax: No acute osseous abnormality. Other: IMPRESSION: Normal examination.
[2018-04-24 05:45] VITALS: BP 116/82
== END 2018-04-24 04:30 | disposition home or self-care (01) ==
LOC: ED 21:09
DX: J01.00 Acute maxillary sinusitis, unspecified (principal); J06.9 Acute upper respiratory infection, unspecified; I10 Essential (primary) hypertension; Z79.899 Other long term (current) drug therapy
CPT/HCPCS: 71046; 87116; 87430; 99283

== ENCOUNTER 2018-08-05 08:26 | Outpatient (CLI) | payer BC ==
[2018-08-05 09:28] LABS: Hematocrit 40.3 % (35.5-45.6); Hemoglobin 13.5 gm/dl (11.8-15.2); Mean Corpuscular HGB Conc 34 % (32-34); Mean Corpuscular Volume 88 fl (84-94); Platelet Count 212 K/mm3 (140-440); Red Cell Distribution Width 14.5 % (13.2-15.2)
[2018-08-05 09:47] LABS: Chol/HDL Ratio 3.72 %
== END 2018-08-05 08:27 | disposition home or self-care (01) ==
LOC: LAB 08:26
PROVIDERS: ATTEND Internal Medicine
DX: E78.5 Hyperlipidemia, unspecified (principal); R73.9 Hyperglycemia, unspecified; E66.9 Obesity, unspecified; I10 Essential (primary) hypertension
CPT/HCPCS: 36415; 80061; 83036; 85027

== ENCOUNTER 2018-09-28 11:00 | Outpatient (CLI) | payer BC | END 2018-09-28 11:01 | disposition home or self-care (01) | LOC: SLR 11:00 | PROVIDERS: ATTEND Otolaryngology | DX: G47.33 Obstructive sleep apnea (adult) (pediatric) (principal); R40.0 Somnolence; R06.83 Snoring; E66.9 Obesity, unspecified | CPT/HCPCS: G0399 ==

== ENCOUNTER → 2018-10-02 | Outpatient (CLI) | payer BC | END | disposition home or self-care (01) | LOC: SLR 11:00 | PROVIDERS: ATTEND Otolaryngology | DX: G47.33 Obstructive sleep apnea (adult) (pediatric) (principal); R40.0 Somnolence; R06.83 Snoring; E66.9 Obesity, unspecified; I10 Essential (primary) hypertension | CPT/HCPCS: 95811 ==

== ENCOUNTER 2018-10-20 12:13 | Outpatient (CLI) | payer BC ==
--- NOTE | 2018-10-21 13:01 | Pulmonary Function Test ---
Height is 66 inches, weight is 367 pounds. Forced vital capacity is 3.27 or 88% predicted, forced expiratory volume in one second or FEV1 is 3.68 or 86% predicted. FEV1/FVC ratio is 88. INTERPRETATION: Normal spirometry. JOB# [id number] BANNER/NTS
== END 2018-10-20 12:14 | disposition home or self-care (01) ==
LOC: PF 12:13
PROVIDERS: ATTEND Surgery
DX: E66.2 Morbid (severe) obesity with alveolar hypoventilation (principal)
CPT/HCPCS: 94010

== ENCOUNTER 2018-11-19 08:33 | Outpatient (CLI) | payer BC ==
[2018-11-19 11:10] LABS: Chol/HDL Ratio 3.67 %
== END 2018-11-19 08:34 | disposition home or self-care (01) ==
LOC: LAB 08:33
PROVIDERS: ATTEND Internal Medicine
DX: R73.03 Prediabetes (principal); E78.5 Hyperlipidemia, unspecified; E03.9 Hypothyroidism, unspecified; I10 Essential (primary) hypertension
CPT/HCPCS: 36415; 80061; 83036; 84443

== ENCOUNTER 2019-02-18 06:56 | Day surgery (SDC) | payer BC ==
[~2019-02-18 06:56] MED LIST: SODIUM CHLORIDE 0.9% 1000 ML 1,000 ML IV SCH
--- NOTE | 2019-02-18 08:44 | Discharge Summary ---
Providers - Providers Date of Admission: 02/18/2019 Date of discharge: 02/18/19 Attending physician: RODNEY PIERRE MD Primary care physician: NANDINI MAYS Hospitalization Reason for admission: egd Condition: Good Procedures: egd Hospital course: uneventful egd as part of pre-op work up for bariatric surgery Disposition: DC-01 TO HOME OR SELFCARE Core Measure Documentation - Palliative Care Palliative Care/ Comfort Measures: Not Applicable - Core Measures Any of the following diagnoses?: none Exam - Physical Exam Narrative exam: unchanged from pre-op - Constitutional Vitals: Temp Pulse Resp BP Pulse Ox 98.7 F 79 15 117/65 97 02/18/19 08:10 02/18/19 08:10 02/18/19 08:10 02/18/19 08:10 02/18/19 08:10 Plan Activity: no restrictions Diet: low carbohydrate Follow up with: NANDINI MAYS MD [Primary Care Provider] - 7 Days
--- NOTE | 2019-02-18 08:47 | Anesthesia Day of Surgery ---
Anesthesia Day of Surgery - Day of Surgery Patient Examined: Yes Patient H&P Reviewed: Yes Patient is NPO: Yes
--- NOTE | 2019-02-18 08:50 | Anesthesia Consultation ---
Anesthesia Consult and Med Hx Date of service: 02/18/19 - Airway Anesthetic Teeth Evaluation: Good, Crowns ROM Head & Neck: Adequate Mental/Hyoid Distance: Adequate Mallampati Class: Class III Intubation Access Assessment: Probably Good - Pre-Operative Health Status ASA Pre-Surgery Classification: ASA3 Proposed Anesthetic Plan: MAC - Pulmonary Hx Sleep Apnea: Yes (CPAP) - Cardiovascular System Hx Hypertension: Yes (ETT in December-ok per pt) Hx Pacemaker: No Hx Internal Defibrillator: No - Endocrine Hx Liver Disease: Yes (Hep A childhood; denies symptoms) Hx Non-Insulin Dependent Diabetes: Yes (FBS 95) Hx Thyroid Disease: Yes Hx Hypothyroidism: Yes - Other Systems Hx Cancer: No
--- NOTE | 2019-02-18 08:52 | Operative Report ---
Operative Report Operative Report: OPERATIVE REPORT - EGD DATE 02/18/2019 SURGERY: Upper endoscopy with antral biopsy SURGEON: Clifton Marrero M.D. TRACK MANAGER: n/a PRE OP DX: POST OP DX: TYPE OF ANESTHESIA: MAC. ESTIMATED BLOOD LOSS: None. COMPLICATIONS: None. SPECIMENS REMOVED: None. FINDINGS: 1. Small hiatal hernia. 2. Otherwise, normal esophagus, stomach and first portion of duodenum. INDICATIONS:INDICATION FOR PROCEDURE: Patient is a 38-year-old male with a long history of morbid obesity. He is planned to have a weight loss procedure and is here for preoperative planning EGD. PROCEDURE DETAILS: After consent was reviewed, patient was taken back to the operating room where patient was placed in the left lateral decubitus position and a bite block was placed in the mouth. After a time-out was called, MAC anesthesia was initiated. I then passed the endoscope into her oropharynx, into her esophagus, visualized the entire esophagus, which was all within normal limits. I then visualized the stomach and the first portion of the duodenum and there were no abnormalities I could clearly visualize. I then retroflexed the scope in the stomach and visualized the hiatus and I could see a small hiatal hernia. A cold antral biopsy was performed to eval for h.pylori as part of the pre-op work up. I then desufflated the stomach and removed the endoscope. Patient tolerated procedure well and was transferred to recovery room in good and stable condition.
[2019-02-18] MEDS ORDERED: fentaNYL 100 MCG/2 ML INJ ONE (09:00)
[2019-02-18] MEDS ORDERED: PROPOFOL 200 MG/20 ML VIAL IV ONE (09:00)
[2019-02-18] MEDS ORDERED: LIDOCAINE MPF (2%) 20 MG/1 ML VIAL 5 ML ONE (09:30)
[2019-02-18 09:48] VITALS: BP 115/76
--- NOTE | 2019-02-18 10:45 | Post Anesthesia Evaluation ---
- Post Anesthesia Evaluation Patient Participated: Yes Airway Patent: Yes Stable Respiratory Function: Yes Nausea/Vomiting: No Temp > 96.8F: Yes Pain Manageable: Yes Adequeate Hydration: Yes Anesthesia Complications: No Block Receding Appropriately: Not Applicable Patient on Ventilator: No
== END 2019-02-18 06:57 | disposition home or self-care (01) ==
LOC: GIO 06:56
PROVIDERS: ATTEND Surgery
DX: K29.50 Unspecified chronic gastritis without bleeding (principal); K44.9 Diaphragmatic hernia without obstruction or gangrene; E66.01 Morbid (severe) obesity due to excess calories; I10 Essential (primary) hypertension; G47.30 Sleep apnea, unspecified; E11.9 Type 2 diabetes mellitus without complications; E03.9 Hypothyroidism, unspecified; Z98.890 Other specified postprocedural states; Z68.44 Body mass index [BMI] 60.0-69.9, adult; Z79.899 Other long term (current) drug therapy
CPT/HCPCS: 43239; 82962; 88305; 88342; J2704; J3010; J7030

== ENCOUNTER 2019-08-27 09:18 | Outpatient (CLI) | payer BC ==
[2019-08-27 09:37] LABS: Basophils # (Auto) 0.1 K/mm3 (0.0-0.1); Basophils % (Auto) 0.9 % (0.0-1.8); Eosinophils # (Auto) 0.2 K/mm3 (0.0-0.4); Eosinophils % (Auto) 3.7 % (0.0-4.3); Hematocrit 38.7 % (35.5-45.6); Hemoglobin 12.9 gm/dl (11.8-15.2); Lymphocytes # (Auto) 1.3 K/mm3 (1.2-5.4); Lymphocytes % (Auto) 20.9 % (13.4-35.0); Mean Corpuscular HGB Conc 33 % (32-34); Mean Corpuscular Volume 88 fl (84-94); Monocytes # (Auto) 0.5 K/mm3 (0.0-0.8); Monocytes % (Auto) 7.9 % (0.0-7.3); Platelet Count 151 K/mm3 (140-440); Red Blood Count 4.43 M/mm3 (3.65-5.03); Red Cell Distribution Width 14.5 % (13.2-15.2)
[2019-08-27 10:37] LABS: Alanine Aminotransferase 18 units/L (7-56); BUN/Creatinine Ratio 24; Blood Urea Nitrogen 17 mg/dL (9-20); Calcium 9.7 mg/dL (8.4-10.2); Hemolysis Index 6; Iron 87 ug/dL (49-181); Total Iron Binding Capacity 208 mcg/dL (250-450)
[2019-08-27 12:15] LABS: Albumin 4.4 g/dL (3.9-5)
[2019-08-30 11:58] LABS: Vitamin D, 25-OH, D2 <4 ng/mL
== END 2019-08-27 09:19 | disposition home or self-care (01) ==
LOC: LAB 09:18
PROVIDERS: ATTEND Surgery
DX: E66.01 Morbid (severe) obesity due to excess calories (principal)
CPT/HCPCS: 36415; 80053; 82306; 82607; 83550; 83970; 84425; 85025

== ENCOUNTER 2019-09-30 09:10 | Outpatient (CLI) | payer BC ==
[2019-09-30 10:42] LABS: Chol/HDL Ratio 3.05 %
== END 2019-09-30 09:11 | disposition home or self-care (01) ==
LOC: LAB 09:10
PROVIDERS: ATTEND Internal Medicine
DX: E03.9 Hypothyroidism, unspecified (principal); R73.03 Prediabetes; E66.01 Morbid (severe) obesity due to excess calories
CPT/HCPCS: 36415; 80061; 83036; 84443

== ENCOUNTER 2019-12-17 10:12 | Outpatient (CLI) | payer BC ==
[2019-12-17 10:38] LABS: Basophils # (Auto) 0.1 K/mm3 (0.0-0.1); Basophils % (Auto) 0.7 % (0.0-1.8); Eosinophils # (Auto) 0.2 K/mm3 (0.0-0.4); Eosinophils % (Auto) 2.3 % (0.0-4.3); Hematocrit 40.7 % (35.5-45.6); Hemoglobin 14.2 gm/dl (11.8-15.2); Lymphocytes # (Auto) 1.4 K/mm3 (1.2-5.4); Mean Corpuscular HGB Conc 35 % (32-34); Mean Corpuscular Volume 90 fl (84-94); Monocytes # (Auto) 0.6 K/mm3 (0.0-0.8); Monocytes % (Auto) 8.5 % (0.0-7.3); Platelet Count 195 K/mm3 (140-440); Red Blood Count 4.54 M/mm3 (3.65-5.03); Red Cell Distribution Width 14.1 % (13.2-15.2)
[2019-12-17 11:00] LABS: Alanine Aminotransferase 9 units/L (7-56); Albumin 4.3 g/dL (3.9-5); Blood Urea Nitrogen 15 mg/dL (9-20); Hemolysis Index 4; Iron 71 ug/dL (49-181); Total Iron Binding Capacity 223 mcg/dL (250-450)
[2019-12-17 11:06] LABS: BUN/Creatinine Ratio 21
== END 2019-12-17 10:13 | disposition home or self-care (01) ==
LOC: LAB 10:12
PROVIDERS: ATTEND Surgery
DX: Z00.00 Encounter for general adult medical examination without abnormal findings (principal); K30 Functional dyspepsia; D50.9 Iron deficiency anemia, unspecified; E61.8 Deficiency of other specified nutrient elements; E11.9 Type 2 diabetes mellitus without complications
CPT/HCPCS: 36415; 80053; 82306; 82607; 83550; 83970; 84425; 85025

== ENCOUNTER 2020-04-13 09:46 | Outpatient (CLI) | payer BC ==
[2020-04-13 10:08] LABS: Basophils % (Auto) 0.5 % (0.0-1.8); Eosinophils # (Auto) 0.2 K/mm3 (0.0-0.4); Eosinophils % (Auto) 1.9 % (0.0-4.3); Hematocrit 42.9 % (35.5-45.6); Hemoglobin 14.4 gm/dl (11.8-15.2); Lymphocytes # (Auto) 1.3 K/mm3 (1.2-5.4); Lymphocytes % (Auto) 13.5 % (13.4-35.0); Mean Corpuscular HGB Conc 34 % (32-34); Mean Corpuscular Volume 91 fl (84-94); Monocytes # (Auto) 0.7 K/mm3 (0.0-0.8); Monocytes % (Auto) 7.3 % (0.0-7.3); Platelet Count 181 K/mm3 (140-440); Red Blood Count 4.73 M/mm3 (3.65-5.03); Red Cell Distribution Width 13.5 % (13.2-15.2)
[2020-04-13 10:33] LABS: Alanine Aminotransferase 14 units/L (7-56); Albumin 4.6 g/dL (3.9-5); BUN/Creatinine Ratio 18; Blood Urea Nitrogen 14 mg/dL (9-20); Calcium 9.5 mg/dL (8.4-10.2); Chol/HDL Ratio 2.42 %; HDL Cholesterol 66 mg/dL (40-59); Hemolysis Index 3; LDL Cholesterol,Direct 98 mg/dL (50-130)
[2020-04-15 20:35] LABS: Vitamin D, 25-OH, D2 <4 ng/mL
== END 2020-04-13 09:47 | disposition home or self-care (01) ==
LOC: LAB 09:46
PROVIDERS: ATTEND Internal Medicine
DX: Z00.00 Encounter for general adult medical examination without abnormal findings (principal); R73.03 Prediabetes; E78.5 Hyperlipidemia, unspecified; E03.9 Hypothyroidism, unspecified; D51.9 Vitamin B12 deficiency anemia, unspecified; E55.9 Vitamin D deficiency, unspecified
CPT/HCPCS: 36415; 80053; 80061; 82306; 82607; 83036; 84443; 85025

== ENCOUNTER 2020-07-21 15:26 | Outpatient (CLI) | payer BC ==
[2020-07-21 16:06] LABS: Basophils # (Auto) 0.1 K/mm3 (0.0-0.1); Eosinophils # (Auto) 0.2 K/mm3 (0.0-0.4); Eosinophils % (Auto) 2.5 % (0.0-4.3); Hematocrit 41.1 % (35.5-45.6); Lymphocytes # (Auto) 1.7 K/mm3 (1.2-5.4); Lymphocytes % (Auto) 22.7 % (13.4-35.0); Mean Corpuscular HGB Conc 34 % (32-34); Mean Corpuscular Volume 92 fl (84-94); Monocytes # (Auto) 0.6 K/mm3 (0.0-0.8); Monocytes % (Auto) 8.3 % (0.0-7.3); Platelet Count 165 K/mm3 (140-440); Red Blood Count 4.48 M/mm3 (3.65-5.03); Red Cell Distribution Width 13.2 % (13.2-15.2)
[2020-07-21 16:23] LABS: Alanine Aminotransferase 12 units/L (7-56); BUN/Creatinine Ratio 24; Blood Urea Nitrogen 19 mg/dL (9-20); Chol/HDL Ratio 2.29 %; HDL Cholesterol 61 mg/dL (40-59); Hemolysis Index 10; Iron 60 ug/dL (49-181); LDL Cholesterol,Direct 79 mg/dL (50-130); Total Iron Binding Capacity 254 mcg/dL (250-450)
[2020-07-25 11:33] LABS: Vitamin D, 25-OH, D2 28 ng/mL
== END 2020-07-21 15:27 | disposition home or self-care (01) ==
LOC: LAB 15:26
PROVIDERS: ATTEND Surgery
DX: E11.9 Type 2 diabetes mellitus without complications (principal); E66.01 Morbid (severe) obesity due to excess calories; K30 Functional dyspepsia; E55.9 Vitamin D deficiency, unspecified; K90.9 Intestinal malabsorption, unspecified; Z98.84 Bariatric surgery status
CPT/HCPCS: 36415; 80053; 80061; 82306; 82607; 82728; 83036; 83550; 83970; 84425; 84443; 85025

== ENCOUNTER 2020-10-25 09:16 | Outpatient (CLI) | payer BC | END 2020-10-25 09:17 | disposition home or self-care (01) | LOC: LAB 09:16 | PROVIDERS: ATTEND Internal Medicine | DX: Z00.00 Encounter for general adult medical examination without abnormal findings (principal) | CPT/HCPCS: 36415; 84443 ==

== ENCOUNTER 2021-01-19 15:08 | Outpatient (CLI) | payer BC ==
[2021-01-19 15:42] LABS: Basophils # (Auto) 0.1 K/mm3 (0.0-0.1); Basophils % (Auto) 0.9 % (0.0-1.8); Eosinophils # (Auto) 0.2 K/mm3 (0.0-0.4); Eosinophils % (Auto) 2.6 % (0.0-4.3); Hematocrit 40.5 % (35.5-45.6); Hemoglobin 13.4 gm/dl (11.8-15.2); Lymphocytes # (Auto) 1.7 K/mm3 (1.2-5.4); Lymphocytes % (Auto) 24.7 % (13.4-35.0); Mean Corpuscular HGB Conc 33 % (32-34); Mean Corpuscular Volume 92 fl (84-94); Monocytes # (Auto) 0.6 K/mm3 (0.0-0.8); Platelet Count 187 K/mm3 (140-440); Red Cell Distribution Width 12.9 % (13.2-15.2)
[2021-01-19 16:02] LABS: % Iron Saturation 37.39 %; Alanine Aminotransferase 14 units/L (7-56); Albumin 4.4 g/dL (3.9-5); BUN/Creatinine Ratio 19; Blood Urea Nitrogen 15 mg/dL (9-20); Calcium 9.2 mg/dL (8.4-10.2); Chol/HDL Ratio 2.54 %; HDL Cholesterol 59 mg/dL (40-59); Hemolysis Index 15; Iron 89 ug/dL (49-181); LDL Cholesterol,Direct 79 mg/dL (50-130); Total Iron Binding Capacity 238 mcg/dL (250-450)
== END 2021-01-19 15:09 | disposition home or self-care (01) ==
LOC: LAB 15:08
PROVIDERS: ATTEND Surgery
DX: E55.9 Vitamin D deficiency, unspecified (principal); E11.9 Type 2 diabetes mellitus without complications; K90.9 Intestinal malabsorption, unspecified; E66.01 Morbid (severe) obesity due to excess calories; K30 Functional dyspepsia; Z98.84 Bariatric surgery status
CPT/HCPCS: 36415; 80053; 80061; 82306; 82607; 82728; 83036; 83550; 83970; 84425; 84443; 85025

== ENCOUNTER 2021-04-18 09:45 | Outpatient (CLI) | payer BC ==
[2021-04-18 10:04] LABS: Basophils # (Auto) 0.1 K/mm3 (0.0-0.1); Basophils % (Auto) 1.1 % (0.0-1.8); Eosinophils # (Auto) 0.2 K/mm3 (0.0-0.4); Eosinophils % (Auto) 2.8 % (0.0-4.3); Hematocrit 43.1 % (35.5-45.6); Hemoglobin 14.2 gm/dl (11.8-15.2); Lymphocytes # (Auto) 1.5 K/mm3 (1.2-5.4); Lymphocytes % (Auto) 26.6 % (13.4-35.0); Mean Corpuscular HGB Conc 33 % (32-34); Mean Corpuscular Volume 91 fl (84-94); Monocytes # (Auto) 0.5 K/mm3 (0.0-0.8); Platelet Count 194 K/mm3 (140-440); Red Blood Count 4.75 M/mm3 (3.65-5.03); Red Cell Distribution Width 13.1 % (13.2-15.2)
[2021-04-18 10:44] LABS: Alanine Aminotransferase 19 units/L (7-56); Albumin 4.4 g/dL (3.9-5); BUN/Creatinine Ratio 20; Blood Urea Nitrogen 16 mg/dL (9-20); Calcium 9.3 mg/dL (8.4-10.2); Chol/HDL Ratio 3.04 %; HDL Cholesterol 45 mg/dL (40-59); Hemolysis Index 6; LDL Cholesterol,Direct 83 mg/dL (50-130)
== END 2021-04-18 09:46 | disposition home or self-care (01) ==
LOC: LAB 09:45
PROVIDERS: ATTEND Internal Medicine
DX: Z00.00 Encounter for general adult medical examination without abnormal findings (principal); E78.5 Hyperlipidemia, unspecified; I10 Essential (primary) hypertension; E55.9 Vitamin D deficiency, unspecified; E03.9 Hypothyroidism, unspecified
CPT/HCPCS: 36415; 80053; 80061; 82306; 83036; 84443; 85025

== ENCOUNTER 2021-07-19 10:50 | Outpatient (CLI) | payer BC ==
[2021-07-19 11:25] LABS: Basophils # (Auto) 0.1 K/mm3 (0.0-0.1); Basophils % (Auto) 0.8 % (0.0-1.8); Eosinophils # (Auto) 0.2 K/mm3 (0.0-0.4); Eosinophils % (Auto) 2.1 % (0.0-4.3); Hematocrit 42.4 % (35.5-45.6); Hemoglobin 14.1 gm/dl (11.8-15.2); Lymphocytes # (Auto) 1.5 K/mm3 (1.2-5.4); Lymphocytes % (Auto) 19.1 % (13.4-35.0); Mean Corpuscular HGB Conc 33 % (32-34); Mean Corpuscular Volume 89 fl (84-94); Monocytes # (Auto) 0.7 K/mm3 (0.0-0.8); Monocytes % (Auto) 8.6 % (0.0-7.3); Platelet Count 183 K/mm3 (140-440); Red Blood Count 4.74 M/mm3 (3.65-5.03); Red Cell Distribution Width 12.8 % (13.2-15.2)
[2021-07-19 11:51] LABS: Alanine Aminotransferase 16 units/L (7-56); Albumin 4.9 g/dL (3.9-5); BUN/Creatinine Ratio 18; Blood Urea Nitrogen 14 mg/dL (9-20); Calcium 9.8 mg/dL (8.4-10.2); Chol/HDL Ratio 3.48 %; HDL Cholesterol 54 mg/dL (40-59); Hemolysis Index 4; Iron 129 ug/dL (49-181); LDL Cholesterol,Direct 119 mg/dL (50-130); Total Iron Binding Capacity 272 mcg/dL (250-450)
== END 2021-07-19 10:51 | disposition home or self-care (01) ==
LOC: LAB 10:50
PROVIDERS: ATTEND Surgery
DX: Z13.29 Encounter for screening for other suspected endocrine disorder (principal); Z13.21 Encounter for screening for nutritional disorder; Z13.39 Encounter for screening examination for other mental health and behavioral disorders; K30 Functional dyspepsia; K90.9 Intestinal malabsorption, unspecified; E11.9 Type 2 diabetes mellitus without complications; E66.01 Morbid (severe) obesity due to excess calories; Z98.84 Bariatric surgery status
CPT/HCPCS: 36415; 80053; 80061; 82306; 82607; 82728; 83036; 83550; 83970; 84425; 84443; 85025